=== PATIENT | female | born 1985 | race Native Hawaiian/Other Pacific Islander ===

== ENCOUNTER → 2021-01-16 | Outpatient (CLI) | payer BC, OTHER | LOC: INF 12:29 | PROVIDERS: ATTEND Internal Medicine | DX: Z23 Encounter for immunization (principal) | CPT/HCPCS: 96372 ==

== ENCOUNTER 2021-02-09 13:55 | Outpatient (CLI) | payer BC, OTHER | END 2021-02-09 23:20 | disposition home or self-care (01) | LOC: INF 13:55 | PROVIDERS: ATTEND Internal Medicine | DX: Z23 Encounter for immunization (principal) | CPT/HCPCS: 96372 ==

== ENCOUNTER 2021-03-08 19:49 | Emergency (ER) | payer BC ==
[~2021-03-08] VITALS: Ht 167.6 cm; Wt 111.1 kg
[2021-03-08 20:56] VITALS: BP 136/85; TEMP 98.6
== END 2021-03-08 20:56 | disposition home or self-care (01) ==
LOC: ED 19:49
DX: T78.2XXA Anaphylactic shock, unspecified, initial encounter (principal)
CPT/HCPCS: 96372; 99283; J1020